=== PATIENT | female | born 1995 | race Caucasian/White ===

== ENCOUNTER 2023-10-21 10:53 | Emergency (ER) | payer SELFPAY ==
[2023-10-21] MEDS ORDERED: Lidocaine 2% 20 ML MDV INFILT ONE (10:54)
== END 2023-10-21 12:05 | disposition home or self-care (01) ==
LOC: FB.ED 10:53
DX: S61.217A Laceration without foreign body of left little finger without damage to nail, initial encounter (principal); W25.XXXA Contact with sharp glass, initial encounter; Y93.89 Activity, other specified
CPT/HCPCS: 12002; 99282

== ENCOUNTER 2023-10-27 16:31 | Emergency (ER) | payer SELFPAY | END 2023-10-27 17:22 | disposition home or self-care (01) | LOC: FB.ED 16:31 | DX: S61.217A Laceration without foreign body of left little finger without damage to nail, initial encounter (principal); W25.XXXA Contact with sharp glass, initial encounter; Y93.G1 Activity, food preparation and clean up | CPT/HCPCS: 99283 ==